=== PATIENT | female | born 1960 | race Caucasian/White ===

== ENCOUNTER → 2017-04-01 | Outpatient (CLI) | payer BC ==
[~2017-04-01] MED LIST: CYAN500T PO; CYCL10TA6 PO; FLAX1CAP6 PO; FLNIN NAE; IBUP-1050 PO
--- NOTE | 2017-04-01 15:19 | MAMMOGRAPHY REPORT ---
BILATERAL DIGITAL SCREENING MAMMOGRAM TOMOSYNTHESIS WITH CAD: 04/01/2017 CLINICAL HISTORY: Routine screening. Patient has no complaints. TECHNIQUE: Breast tomosynthesis in addition to standard 2D mammography was performed. Current study was also evaluated with a Computer Aided Detection (CAD) system. COMPARISON: No prior exams were available for comparison. BREAST COMPOSITION: There are scattered areas of fibroglandular density in both breasts. FINDINGS: There is a benign intramammary lymph node in the upper outer posterior right breast. No pinto spicious mass, architectural distortion or cluster of suspicious microcalcifications is seen. IMPRESSION: ACR BI-RADS CATEGORY 1: NEGATIVE There is no mammographic evidence of malignancy. Prior outside mammograms are currently being reques jonathan and if obtained they will be reviewed, compared to the current exam to assess for any more subtle changes, and an addendum will be made to this report. Otherwise, a 1 year screening mammogram is re commended. The patient will receive written notification of the results. Approximately 10% of breast cancers are not detected with mammography. A negative mammographic report should not delay biopsy if a clinically suggestive mass is present. Disha Hester M.D. ay/:04/01/2017 12:54:00 Physical Therapy Resident: Josefa HENDERSON)(Aishwarya), [facility] letter sent: Normal 1/2 BI-RADS Code: ACR BI-RADS Category 1: Negative
== END | disposition home or self-care (01) ==
LOC: C.MAMM 11:52
PROVIDERS: ATTEND Internal Medicine
DX: Z12.31 Encounter for screening mammogram for malignant neoplasm of breast (principal)

== ENCOUNTER 2017-04-16 09:12 | Emergency (ER) | payer BC ==
[~2017-04-16] VITALS: Ht 152.4 cm; Wt 65.2 kg
[2017-04-16 09:26] VITALS: TEMP 36.7; O2SAT 100; Ht 152.4 cm; Wt 65.2 kg
--- NOTE | 2017-04-16 09:49 | EMERGENCY ROOM VISIT NOTE ---
History Report prepared by Albert: Edilia Rosas Under the Supervision of: Dr. Kadi Aguillon M.D. First contact with patient: 09:42 Chief Complaint: TACHYCARDIA Stated Complaint: TACHYCARDIA, DIZZY Nursing Triage Summary: pt reports at 0815 this am started feeling dizzy and lightheaded chest felt like it was swaying back and forth, radiates up neck and fingers feel tingly. denies any sob History of Present Illness The patient is a 56 year old female who presents to the Emergency Room with complaints of tachycardia occurring this morning. The patient states that she was at work when her chest suddenly started pounding. She states that it felt as if her chest "was going back and forth." The patient states that she also began to get light-headed and dizzy, but denies having shortness of breath. 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 The patient states that she is a healthy individual and that she had blood work done last month and everything was normal. She denies a history of blood clots. She reports going to [place] by plane at the end of February. Source of History: patient Onset: this morning Position: chest Quality: other (tachycardia ) Timing: other (sudden ) Associated Symptoms: + weakness (light-headed, dizziness), No SOB Review of Systems See HPI for pertinent positives & negatives. A total of 10 systems reviewed and were otherwise negative. Past Medical & Surgical Medical Problems: (1) No active medical problems Family History Cancer Diabetes mellitus Gallbladder disease Heart disease Hypertension Kidney disease Kidney disease Social History Smoking Status: Never Smoker Marital Status: Housing Status: lives with significant other Occupation Status: employed Current/Historical Medications Scheduled Alprazolam (Xanax), 0.5 TAB PO HS Ascorbic Acid (Vitamin C), 1 TAB PO DAILY Cyanocobalamin (Vitamin B-12), 500 MCG PO DAILY Fluticasone Propionate (Nasal) (Flonase Allergy Relief), 1 SPRAY DARRICK DAILY Misc Natural Products (Tart Stephens Advanced), 1 CAP PO DAILY [place]-3 Fatty Acids ([place]), 1 CAP PO DAILY Omeprazole (Prilosec), 20 MG PO DAILY Scheduled PRN Sumatriptan Succinate (Imitrex), 25 MG PO PRN PRN for Headache Allergies Coded Allergies: Propoxyphene (Verified Allergy, Mild, "FEELS LIKE BUGS ARE CRAWLING ON ME " TO HAROLDO, 04/16/17) Physical Exam Vital Signs Date Time Temp Pulse Resp B/P (MAP) Pulse Ox O2 Delivery O2 Flow Rate FiO2 04/16/17 11:48 92 18 117/81 99 Room Air 04/16/17 10:14 110 18 125/80 95 Room Air 04/16/17 09:26 36.7 118 26 136/88 100 Room Air 04/16/17 09:26 100 Room Air 04/16/17 09:25 118 Physical Exam Vital signs reviewed. General: Well-appearing female, in no significant distress. HEENT: No scleral icterus, PERRLA, neck supple. Atraumatic. Cardiovascular: Tachycardic and regular rhythm, no extra sounds. Pulmonary: Clear to auscultation bilaterally, normal work of breathing. Abdomen: Soft, nontender, nondistended, positive bowel sounds. Musculoskeletal: Atraumatic, no peripheral edema. Neurologic: Patient awake alert and oriented x 3, full strength in all 4 extremities. Cranial nerves 2 through 12 grossly intact. Skin: Warm, dry, no rash Medical Decision & Procedures ER Provider Diagnostic Interpretation: Radiology results as stated below per my review and radiologist interpretation: CHEST ONE VIEW PORTABLE CLINICAL HISTORY: tachycardia dyspnea COMPARISON STUDY: 08/31/2012 FINDINGS: The bones soft tissues and hemidiaphragms are normal. The cardiomediastinal silhouette is normal. The lungs are clear. The pulmonary vasculature is normal. IMPRESSION: Negative chest. The above report was generated using voice recognition software. It may contain grammatical, syntax or spelling errors. Electronically signed by: Edmar Orozco M.D. 04/16/2017 10:48 AM Dictated Date/Time: 04/16/2017 10:48 AM Laboratory Results 04/16/17 09:40 Red Blood Count 4.54, Mean Corpuscular Volume 91.0, Mean Corpuscular Hemoglobin 30.0, Mean Corpuscular Hemoglobin Concent 32.9, Mean Platelet Volume 10.0, Neutrophils (%) (Auto) 49.2, Lymphocytes (%) (Auto) 40.0, Monocytes (%) (Auto) 7.2, Eosinophils (%) (Auto) 2.8, Basophils (%) (Auto) 0.6, Neutrophils # (Auto) 3.20, Lymphocytes # (Auto) 2.60, Monocytes # (Auto) 0.47, Eosinophils # (Auto) 0.18, Basophils # (Auto) 0.04 04/16/17 09:40 Test 04/16/17 09:40 04/16/17 10:10 04/16/17 10:14 White Blood Count 6.50 K/uL (4.8-10.8) Red Blood Count 4.54 M/uL (4.2-5.4) Hemoglobin 13.6 g/dL (12.0-16.0) Hematocrit 41.3 % (37-47) Mean Corpuscular Volume 91.0 fL (80-100) Mean Corpuscular Hemoglobin 30.0 pg (25-34) Mean Corpuscular Hemoglobin Concent 32.9 g/dl (32-36) Platelet Count 334 K/uL (130-400) Mean Platelet Volume 10.0 fL (7.4-10.4) Neutrophils (%) (Auto) 49.2 % Lymphocytes (%) (Auto) 40.0 % Monocytes (%) (Auto) 7.2 % Eosinophils (%) (Auto) 2.8 % Basophils (%) (Auto) 0.6 % Neutrophils # (Auto) 3.20 K/uL (1.4-6.5) Lymphocytes # (Auto) 2.60 K/uL (1.2-3.4) Monocytes # (Auto) 0.47 K/uL (0.11-0.59) Eosinophils # (Auto) 0.18 K/uL (0-0.5) Basophils # (Auto) 0.04 K/uL (0-0.2) RDW Standard Deviation 43.8 fL (36.4-46.3) RDW Coefficient of Variation 13.3 % (11.5-14.5) Immature Granulocyte % (Auto) 0.2 % Immature Granulocyte # (Auto) 0.01 K/uL (0.00-0.02) Prothrombin Time 10.3 SECONDS (9.0-12.0) Prothromb Time International Ratio 1.0 (0.9-1.1) Activated Partial Thromboplast Time 25.7 SECONDS (21.0-31.0) Partial Thromboplastin Ratio 1.0 Anion Gap 13.0 mmol/L (3-11) Est Creatinine Clear Calc Drug Dose 57.0 ml/min Estimated GFR () 78.7 Estimated GFR (Non- 67.9 BUN/Creatinine Ratio 14.9 (10-20) Calcium Level 9.8 mg/dl (8.5-10.1) Magnesium Level 1.6 mg/dl (1.8-2.4) Total Bilirubin 0.5 mg/dl (0.2-1) Direct Bilirubin 0.2 mg/dl (0-0.2) Aspartate Amino Transf (AST/SGOT) 34 U/L (15-37) Alanine Aminotransferase (ALT/SGPT) 52 U/L (12-78) Alkaline Phosphatase 79 U/L (45-117) Total Creatine Kinase 157 U/L (26-192) Creatine Kinase MB 2.4 ng/ml (0.5-3.6) Creatine Kinase MB Ratio 1.5 (0-3.0) Total Protein 7.7 gm/dl (6.4-8.2) Albumin 4.2 gm/dl (3.4-5.0) Thyroid Stimulating Hormone (TSH) 2.620 uIu/ml (0.300-4.500) Urine Color YELLOW Urine Appearance CLEAR (CLEAR) Urine pH 8.0 (4.5-7.5) Urine Specific [place] 1.007 (1.000-1.030) Urine Protein NEG (NEG) Urine Glucose (UA) NEG (NEG) Urine Ketones NEG (NEG) Urine Occult Blood TRACE (NEG) Urine Nitrite NEG (NEG) Urine Bilirubin NEG (NEG) Urine Urobilinogen NEG (NEG) Urine Leukocyte Esterase NEG (NEG) Urine WBC (Auto) 0 /hpf (0-5) Urine RBC (Auto) 0-4 /hpf (0-4) Urine Hyaline Casts (Auto) 0 /lpf (0-5) Urine Epithelial Cells (Auto) 10-20 /lpf (0-5) Urine Bacteria (Auto) NEG (NEG) Bedside D-Dimer 238 ng/mlFEU (0-450) Bedside Troponin I < 0.030 ng/ml (0-0.045) Laboratory results per my review. Medications Administered Medications (Trade) Dose Ordered Sig/Smitha Route Start Time Stop Time Status Last Admin Dose Admin Sodium Chloride 500 ml @ 999 mls/hr Q31M STAT IV 04/16/17 10:07 04/16/17 10:37 DC 04/16/17 10:18 999 MLS/HR Magnesium Oxide (Mag-Ox Tab) 800 mg NOW STAT PO 04/16/17 11:55 04/16/17 11:56 DC 04/16/17 12:08 800 MG ECG Indication: tachycardia Rate (beats per minute): 124 Rhythm: sinus tachycardia Findings: PVC, no acute ischemic change, other (subtle ST abnormalities in anterolateral leads) ED Course 0945: Past medical records reviewed. The patient was evaluated in room A9. A complete history and physical examination was performed. 1007: Ordered Sodium Chloride 500 ml @ 999 mls/hr IV. 1155: Ordered Magnesium Oxide 800 mg PO. 1157: I checked on the patient. Her heart rate was normal after being given fluids. 1203: Upon reevaluation, the patient appeared to have improvement of her symptoms. I discussed findings with her. She verbalized agreement of the treatment plan. She was discharged home. Medical Decision Differential diagnosis: Etiologies such as infections, reactive airway disease, pneumonia, pneumothorax , COPD, CHF, cardiac ischemia, pulmonary embolism, musculoskeletal, gastrointestinal, as well as others were entertained. This pt was evaluated and appeared to be in no distress. She was found to be in a sinus tachycardia with a few PVCs, non ischemic EKG. Lab work is unrevealing, mild hypomagnesemia. D-dimer and cardiac enzymes are WNL. CXR is clear. Pt was given po mag oxide and hydrated with NSS. Her HR improved. She was advised to stop caffeine and to drink plenty of fluids. Pt was d/c to f/u with her PCP and to return to the ED for worsening of symptoms or any medical concerns. Medication Reconcilliation Current Medication List: was personally reviewed by me Blood Pressure Screening Patient's blood pressure: Normal blood pressure Impression Primary Impression: Sinus tachycardia Additional Impression: Hypomagnesemia Scribe Attestation The scribe's documentation has been prepared under my direction and personally reviewed by me in its entirety. I confirm that the note above accurately reflects all work, treatment, procedures, and medical decision making performed by me. Departure Information Dispostion Home / Self-Care Referrals Rakel Malave M.D. (PCP) Forms HOME CARE DOCUMENTATION FORM, IMPORTANT VISIT INFORMATION, WORK / SCHOOL INSTRUCTIONS Patient Instructions My [facility] Additional Instructions Diagnosis: Sinus tachycardia, hypomagnesemia Magnesium oxide 400 mg once daily. Avoid excessive caffeine intake. Drink plenty of clear fluids. Follow-up with your physician for reevaluation this week. Return to the ER for worsening of symptoms or any medical concerns. Problem Qualifiers
[2017-04-16] MEDS ORDERED: SODIUM CHLORIDE 0.9% 500ML 500 ML IV STA (10:07)
[2017-04-16 10:23] LABS: PROTHROMBIN TIME (PATIENT) 10.3 SECONDS (9.0-12.0)
[2017-04-16 10:25] LABS: BASO % 0.6 %; BASO ABS # 0.04 K/uL (0-0.2); COMPLETE YES; EOS % 2.8 %; HEMATOCRIT 41.3 % (37-47); IG% 0.2 %; MEAN CORPUSCULAR HGB CONC 32.9 g/dl (32-36); MONO % 7.2 %; NEUT % 49.2 %; PLATELET COUNT 334 K/uL (130-400); RED BLOOD COUNT 4.54 M/uL (4.2-5.4)
[2017-04-16 10:25] LABS: MANUAL MICROSCOPIC REQUIRED? NO; REVIEW REQ? NO; URINE APPEARANCE CLEAR (CLEAR); URINE BILIRUBIN NEG (NEG); URINE COLOR YELLOW; URINE NITRITE NEG (NEG); URINE SPECIFIC GRAVITY 1.007 (1.000-1.030); UROBILINOGEN NEG (NEG); ZZUR CULT IF INDIC CLEAN CATCH NO
[2017-04-16 10:33] LABS: BUN/CREATININE RATIO 14.9 (10-20); CALCIUM 9.8 mg/dl (8.5-10.1); CREATININE 0.95 mg/dl (0.60-1.20); MAGNESIUM 1.6 mg/dl (1.8-2.4); POTASSIUM 3.7 mmol/L (3.5-5.1)
[2017-04-16 10:34] LABS: POINT OF CARE TROPONIN I < 0.030 ng/ml (0-0.045)
[2017-04-16 10:43] LABS: CKMB/CK RATIO 1.5 (0-3.0); THYROID STIMULATING HORMONE 2.62 uIu/ml (0.300-4.500)
--- NOTE | 2017-04-16 10:49 | DIAGNOSTIC IMAGING REPORT ---
CHEST ONE VIEW PORTABLE CLINICAL HISTORY: tachycardia dyspnea COMPARISON STUDY: 08/31/2012 FINDINGS: The bones soft tissues and hemidiaphragms are normal. The cardiomediastinal silhouette is normal. The lungs are clear. The pulmonary vasculature is normal. IMPRESSION: Negative chest. The above report was generated using voice recognition software. It may contain grammatical, syntax or spelling errors. Electronically signed by: Edmar Orozco M.D. 04/16/2017 10:48 AM Dictated Date/Time: 04/16/2017 10:48 AM
[2017-04-16] MEDS ORDERED: SUMA25TA12 PO (11:29)
[2017-04-16] MEDS ORDERED: PRLSR20 PO (11:29)
[2017-04-16] MEDS ORDERED: ALPR1TAB3 PO (11:29)
[2017-04-16] MEDS ORDERED: FLUT0.15 NAE (11:29)
[2017-04-16] MEDS ORDERED: MISCCAP8 PO (11:30)
[2017-04-16] MEDS ORDERED: [UNRECOGNIZED DRUG - CODE] PO (11:30)
[2017-04-16] MEDS ORDERED: ASCA500 PO (11:30)
[2017-04-16 11:48] VITALS: BP 117/81; PULSE 92; O2SAT 99
[2017-04-16] MEDS ORDERED: MAGNESIUM OXIDE 400 MG TAB PO STA (11:55)
== END 2017-04-16 12:15 | disposition home or self-care (01) ==
LOC: C.EDB 09:13 → C.EDA 12:15
DX: R00.0 Tachycardia, unspecified (principal); E83.42 Hypomagnesemia; Z79.899 Other long term (current) drug therapy; Z88.8 Allergy status to other drugs, medicaments and biological substances; Z80.9 Family history of malignant neoplasm, unspecified; Z83.3 Family history of diabetes mellitus; Z83.79 Family history of other diseases of the digestive system; Z82.49 Family history of ischemic heart disease and other diseases of the circulatory system; Z84.1 Family history of disorders of kidney and ureter